=== PATIENT | male | born 1935 | race Two or more races ===

== ENCOUNTER → 2022-08-01 | Outpatient (CLI) | payer OTHER ==
[2022-08-01 08:01] LABS: Basophils # (auto) 0 10 ^3/uL (0-0.2); Basophils % (auto) 0.4 % (0.0-2.0); Eosinophils # (auto) 0.1 10 ^3/uL (0-0.8); Eosinophils % (auto) 1.8 % (0.0-7.0); Hemoglobin 14.6 g/dL (13.5-17.5); Lymphocytes # (auto) 2.7 10 ^3/uL (0.4-5.4); Lymphocytes % (auto) 36.1 % (10.0-50.0); Mean Corpuscular Hemoglobin 33.6 pg (28.0-32.0); Mean Corpuscular Hgb Conc. 33.9 g/dL (32.0-36.0); Mean Corpuscular Volume 99.3 fL (80.0-100.0); Monocytes # (auto) 0.4 10 ^3/uL (0-1.3); Monocytes % (auto) 6.1 % (0.0-12.0); Neutrophils # (auto) 4.1 10 ^3/uL (1.6-8.6); Neutrophils % (auto) 55.6 % (37.0-80.0); Nucleated Red Blood Cells % 0.2 %; Red Blood Cells 4.33 10^6/uL (4.5-5.90); Red Cell Distribution Width 14.5 % (11.8-14.3); White Blood Cell 7.4 10^3/uL (4.4-10.8)
[2022-08-01 08:35] LABS: Albumin 3.8 g/dL (3.4-5.0); Calcium 10.3 mg/dL (8.5-10.1); Potassium 3.9 mmol/L (3.5-5.1)
[2022-08-01 08:43] LABS: BUN/Creatinine Ratio 13.6 (10.0-20.0); Bilirubin, Total 0.6 mg/dL (0.2-1.0); Total Protein 7.3 g/dL (6.4-8.2)
[2022-08-01 08:46] LABS: Prostate Specific Antigen 0.09 ng/mL (0.0-4.0)
== END | disposition home or self-care (01) ==
LOC: LAB 07:22
PROVIDERS: ATTEND Internal Medicine
DX: Z12.5 Encounter for screening for malignant neoplasm of prostate (principal); E11.21 Type 2 diabetes mellitus with diabetic nephropathy; E78.5 Hyperlipidemia, unspecified; E53.0 Riboflavin deficiency; E55.9 Vitamin D deficiency, unspecified
CPT/HCPCS: 36415; 80053; 82306; 82465; 82607; 83036; 83718; 83721; 84153; 84439; 84478; 85025

== ENCOUNTER → 2022-11-09 | Outpatient (CLI) | payer OTHER ==
[2022-11-09 08:27] LABS: Urine Bacteria NONE SEEN /hpf (None Seen); Urine Blood Negative /uL (Negative); Urine Clarity Clear (Clear); Urine Color Yellow (Yellow); Urine Protein, UAD Negative (Negative); Urine Specific Gravity 1.013 (1.001-1.035); Urine Urobilinogen Normal (Negative); Urine WBC <1 /hpf (0 - 3); Urine pH 5.5 (5.0-8.0)
[2022-11-09 09:04] LABS: CRP High Sensitivity 0.27 mg/dL (< 0.3)
== END | disposition home or self-care (01) ==
LOC: LAB 07:47
PROVIDERS: ATTEND Internal Medicine
DX: E11.21 Type 2 diabetes mellitus with diabetic nephropathy (principal); E78.5 Hyperlipidemia, unspecified; R80.9 Proteinuria, unspecified; E55.9 Vitamin D deficiency, unspecified; E53.8 Deficiency of other specified B group vitamins
CPT/HCPCS: 36415; 80061; 81001; 82043; 82306; 82550; 82607; 83036; 84436; 84443; 86141; 87086

== ENCOUNTER → 2023-05-02 | Outpatient (CLI) | payer OTHER ==
[2023-05-02 10:25] LABS: Anion Gap 6 (5-15); Carbon Dioxide 26 mmol/L (20-30); Chloride 108 mmol/L (98-107); Potassium 4.3 mmol/L (3.5-5.1); Sodium 140 mmol/L (136-145)
[2023-05-02 10:26] LABS: Calcium 10.3 mg/dL (8.5-10.1)
[2023-05-02 10:30] LABS: Glucose 180 mg/dL (74-106)
[2023-05-02 10:31] LABS: BUN/Creatinine Ratio 9.4 (10.0-20.0); Blood Urea Nitrogen 13 mg/dL (9-23); Cholesterol 176 mg/dL (< 200); Triglycerides 71 mg/dL (< 150)
[2023-05-02 10:32] LABS: Creatinine, Urine 104.28 mg/dL (30.0-125.0); LDL Cholesterol 107 mg/dL (< 100)
[2023-05-02 10:33] LABS: HDL Cholesterol 57 mg/dL (40-59)
[2023-05-02 10:34] LABS: Micro Albumin < 3.0 mg/L (<30.0)
== END | disposition home or self-care (01) ==
LOC: LAB 09:35
PROVIDERS: ATTEND Internal Medicine
DX: E11.69 Type 2 diabetes mellitus with other specified complication (principal); E78.5 Hyperlipidemia, unspecified
CPT/HCPCS: 36415; 80048; 80061; 82043; 82570; 83036

== ENCOUNTER → 2023-11-06 | Outpatient (CLI) | payer OTHER ==
[2023-11-06 08:02] LABS: Basophils # (auto) 0 10 ^3/uL (0-0.2); Basophils % (auto) 0.3 % (0.0-2.0); Eosinophils # (auto) 0.1 10 ^3/uL (0-0.8); Eosinophils % (auto) 1.9 % (0.0-7.0); Hematocrit 40.8 % (41.0-53.0); Hemoglobin 13.7 g/dL (13.5-17.5); Lymphocytes # (auto) 2.2 10 ^3/uL (0.4-5.4); Mean Corpuscular Hemoglobin 30.4 pg (28.0-32.0); Mean Corpuscular Hgb Conc. 33.7 g/dL (32.0-36.0); Mean Corpuscular Volume 90.1 fL (80.0-100.0); Monocytes # (auto) 0.5 10 ^3/uL (0-1.3); Monocytes % (auto) 8.1 % (0.0-12.0); Neutrophils # (auto) 3.6 10 ^3/uL (1.6-8.6); Neutrophils % (auto) 55.7 % (37.0-80.0); Nucleated Red Blood Cells % 0.1 %; Red Blood Cells 4.52 10^6/uL (4.5-5.90); Red Cell Distribution Width 16.1 % (11.8-14.3); White Blood Cell 6.4 10^3/uL (4.4-10.8)
[2023-11-06 08:31] LABS: Alanine Aminotransferase 10 U/L (7-40); Albumin 4.3 g/dL (3.2-4.8); Alkaline Phosphatase 88 U/L (46-116); Anion Gap 8 (5-15); Aspartate Aminotransferase 9 U/L (13-40); BUN/Creatinine Ratio 11.2 (10.0-20.0); Bilirubin, Total 0.7 mg/dL (0.2-1.0); Blood Urea Nitrogen 13 mg/dL (9-23); Calcium 10.7 mg/dL (8.7-10.4); Carbon Dioxide 24 mmol/L (20-30); Chloride 106 mmol/L (98-107); Cholesterol 126 mg/dL (< 200); Creatine Kinase IFCC 25 U/L (46-171); Glucose 102 mg/dL (74-106); HDL Cholesterol 57 mg/dL (40-59); LDL Cholesterol 50 mg/dL (< 100); Potassium 4.1 mmol/L (3.5-5.1); Sodium 138 mmol/L (136-145); Total Protein 6.7 g/dL (5.7-8.2); Triglycerides 98 mg/dL (< 150)
== END | disposition home or self-care (01) ==
LOC: LAB 07:23
PROVIDERS: ATTEND Internal Medicine
DX: E11.22 Type 2 diabetes mellitus with diabetic chronic kidney disease (principal); N18.32 Chronic kidney disease, stage 3b; E11.21 Type 2 diabetes mellitus with diabetic nephropathy; E55.9 Vitamin D deficiency, unspecified; R80.9 Proteinuria, unspecified; E78.5 Hyperlipidemia, unspecified; R10.13 Epigastric pain
CPT/HCPCS: 36415; 80053; 80061; 82043; 82306; 82550; 83036; 84436; 84443; 85025; 87086

== ENCOUNTER → 2023-11-23 | Outpatient (CLI) | payer OTHER ==
[2023-11-23 11:03] LABS: Urine Bacteria None Seen /hpf (None Seen)
[2023-11-23 11:05] LABS: Basophils # (auto) 0 10 ^3/uL (0-0.2); Basophils % (auto) 0.3 % (0.0-2.0); Eosinophils # (auto) 0.1 10 ^3/uL (0-0.8); Eosinophils % (auto) 1.7 % (0.0-7.0); Hematocrit 42.1 % (41.0-53.0); Lymphocytes # (auto) 1.8 10 ^3/uL (0.4-5.4); Lymphocytes % (auto) 31.9 % (10.0-50.0); Mean Corpuscular Hemoglobin 29.8 pg (28.0-32.0); Mean Corpuscular Hgb Conc. 33.3 g/dL (32.0-36.0); Mean Corpuscular Volume 89.7 fL (80.0-100.0); Monocytes # (auto) 0.5 10 ^3/uL (0-1.3); Monocytes % (auto) 8.8 % (0.0-12.0); Neutrophils # (auto) 3.2 10 ^3/uL (1.6-8.6); Neutrophils % (auto) 57.3 % (37.0-80.0); Nucleated Red Blood Cells % 0.1 %; Platelet Count (auto) 270 10^3/uL (140-450); Red Blood Cells 4.69 10^6/uL (4.5-5.90); Red Cell Distribution Width 17.1 % (11.8-14.3); White Blood Cell 5.6 10^3/uL (4.4-10.8)
[2023-11-23 11:28] LABS: Urine Blood Negative /uL (Negative); Urine Clarity Clear (Clear); Urine Color Yellow (Yellow); Urine Protein, UAD Negative (Negative); Urine Specific Gravity 1.021 (1.001-1.035); Urine Urobilinogen Normal (Negative); Urine WBC <1 /hpf (0 - 3); Urine pH 5.5 (5.0-9.0)
[2023-11-23 11:59] LABS: % Iron Saturation 16.1 % (20-55)
[2023-11-23 12:01] LABS: Alanine Aminotransferase 11 U/L (7-40); Albumin 4.4 g/dL (3.2-4.8); Alkaline Phosphatase 112 U/L (46-116); Anion Gap 7 (5-15); Aspartate Aminotransferase 15 U/L (13-40); BUN/Creatinine Ratio 7.8 (10.0-20.0); Bilirubin, Total 0.8 mg/dL (0.2-1.0); Blood Urea Nitrogen 10 mg/dL (9-23); Calcium 10.3 mg/dL (8.7-10.4); Carbon Dioxide 25 mmol/L (20-30); Chloride 106 mmol/L (98-107); Glucose 113 mg/dL (74-106); Potassium 4.1 mmol/L (3.5-5.1); Sodium 138 mmol/L (136-145)
[2023-11-23 12:02] LABS: Total Protein 7.2 g/dL (5.7-8.2)
[2023-11-23 12:03] LABS: Carcinoembryonic Antigen 0.94 ng/mL (<=5.0)
[2023-11-23 12:18] LABS: Folate (Folic Acid) 37.04 ng/mL (>5.38)
[2023-11-24 08:07] LABS: AFP Serum Tumor Marker <1.8 ng/mL (0.0-6.4); PSA Free 0.03 ng/mL; Prostate Specific Antigen 0.1 ng/mL (0.0-4.0)
== END | disposition home or self-care (01) ==
LOC: LAB 10:49
PROVIDERS: ATTEND Internal Medicine
DX: R63.4 Abnormal weight loss (principal); Z12.5 Encounter for screening for malignant neoplasm of prostate; E11.21 Type 2 diabetes mellitus with diabetic nephropathy
CPT/HCPCS: 36415; 80053; 81001; 82105; 82378; 82607; 82746; 83540; 83550; 83615; 84154; 85025; 87086

== ENCOUNTER → 2024-06-06 | Outpatient (CLI) | payer OTHER ==
[2024-06-06 10:57] LABS: Creatinine, Urine 190.58 mg/dL (30.0-125.0)
[2024-06-06 11:00] LABS: Microalb/Creat Ratio, Urine < 3.0
[2024-06-06 11:01] LABS: Alanine Aminotransferase 11 U/L (7-40); Albumin 4.6 g/dL (3.2-4.8); Alkaline Phosphatase 91 U/L (46-116); Anion Gap 9 (5-15); Aspartate Aminotransferase 13 U/L (13-40); BUN/Creatinine Ratio 10.4 (10.0-20.0); Bilirubin, Total 0.6 mg/dL (0.2-1.0); Blood Urea Nitrogen 13 mg/dL (9-23); Calcium 10.8 mg/dL (8.7-10.4); Carbon Dioxide 26 mmol/L (20-31); Chloride 108 mmol/L (98-107); Cholesterol 174 mg/dL (< 200); Glucose 123 mg/dL (74-106); HDL Cholesterol 63 mg/dL (40-59); LDL Cholesterol 95 mg/dL (< 100); Potassium 4.3 mmol/L (3.5-5.1); Sodium 143 mmol/L (136-145); Total Protein 7.1 g/dL (5.7-8.2); Triglycerides 92 mg/dL (< 150)
== END | disposition home or self-care (01) ==
LOC: LAB 10:09
PROVIDERS: ATTEND Internal Medicine
DX: E11.69 Type 2 diabetes mellitus with other specified complication (principal); E78.5 Hyperlipidemia, unspecified
CPT/HCPCS: 36415; 80053; 80061; 82043; 82570; 83036

== ENCOUNTER → 2024-10-03 | Outpatient (CLI) | payer OTHER ==
[2024-10-03 07:58] LABS: Alanine Aminotransferase 10 U/L (7-40); Albumin 4.3 g/dL (3.2-4.8); Alkaline Phosphatase 97 U/L (46-116); Anion Gap 9 (5-15); BUN/Creatinine Ratio 8.6 (10.0-20.0); Blood Urea Nitrogen 11 mg/dL (9-23); Calcium 10.3 mg/dL (8.7-10.4); Carbon Dioxide 26 mmol/L (20-31); Chloride 106 mmol/L (98-107); Potassium 4.2 mmol/L (3.5-5.1); Sodium 141 mmol/L (136-145); Total Protein 6.8 g/dL (5.7-8.2)
[2024-10-03 07:59] LABS: Bilirubin, Total 0.8 mg/dL (0.2-1.0)
[2024-10-03 08:05] LABS: Glucose 121 mg/dL (74-106)
== END | disposition home or self-care (01) ==
LOC: LAB 06:44
PROVIDERS: ATTEND Internal Medicine
DX: E11.69 Type 2 diabetes mellitus with other specified complication (principal)
CPT/HCPCS: 36415; 80053; 83036

== ENCOUNTER 2025-02-17 14:29 | Inpatient (IN) | payer OTHER ==
[~2025-02-17] VITALS: Ht 167.6 cm; Wt 72.4 kg
--- NOTE | 2025-02-17 15:58 | ED.PDOC ---
History of Present Illness HPI Comments 89 year old male with PMHx DM presents to the ED via EMS with a chief compliant of generalized weakness onset 1 day. states patient has been experiencing generalized weakness for the past day, yesterday around 15:00 went to the restroom, was not able to get up due to weakness, fell on the ground. Today, patient was was sitting down, tried to stand up, fell backwards, landing on his back. Patient states he is currently experiencing RT thigh pain. states patient has been experiencing hematuria, RT testicle swelling for the past day, was experiencing RT back pain. Denies headache, chest pain, dizziness, nausea, vomiting, diarrhea, LOC. No other symptoms or modifying factors present at this time. Chief Complaint: General Weakness Time Seen by MD: 15:45 Reviewed Notes: Medications, Allergies Allergies: Coded Allergies: NO KNOWN ALLERGIES (Unverified , 02/17/25) Information Source: Patient, Emergency Med Personnel, Spouse Mode of Arrival: EMS Severity: Moderate Timing: Days Duration: Since onset Prehospital treatment: None Past Medical History PAST MEDICAL HISTORY: DM Surgical History: Denies all surgeries Family History Family History: Reviewed,noncontributory to illness, No family hx of Cancer, No family hx of DM, No family hx of Heart ghulam, No family hx of HTN, No family hx ofKidney ghulam, No family hx of Liver ghulam, No family hx of Lung ghulam, No family hx of Stroke Social History Smoker: Non-Smoker Alcohol: Denies ETOH Use Drugs: Denies Drug Use Lives In: Home Constitutional: denies: chills, diaphoresis, fatigue, fever, malaise, sweats, weakness, others EENTM: denies: blurred vision, double vision, ear bleeding, ear discharge, ear drainage, ear pain, ear ringing, eye pain, eye redness, hearing loss, mouth pain, mouth swelling, nasal discharge, nose bleeding, nose congestion, nose pain, photophobia, tearing, throat pain, throat swelling, voice changes, others Respiratory: denies: cough, hemoptysis, orthopnea, SOB at rest, shortness of breath, SOB with excertion, stridor, wheezing, others Cardiovascular: denies: chest pain, dizzy spells, diaphoresis, Dyspnea on exertion, edema, irregular heart beat, left arm pain, lightheadedness, palpitations, PND, syncope, others Gastrointestinal: denies: abdomen distended, abdominal pain, blood streaked bowels, constipated, diarrhea, dysphagia, difficulty swallowing, hematemesis, melena, nausea, poor appetite, poor fluid intake, rectal bleeding, rectal pain, vomiting, others Genitourinary: reports: hematuria, testicle swelling; denies: burning, dysuria, flank pain, frequency, incontinence, penile discharge, penile sore, pain, testicle pain, urgency, others Neurological: denies: dizziness, fainting, headache, left sided numbness, left sided weakness, numbness, paresthesia, pre-existing deficit, right sided numbness, right sided weakness, seizure, speech problems, tingling, tremors, weakness, others Musculoskeletal: reports: back pain, others (RT thigh pain); denies: gout, joint pain, joint swelling, muscle pain, muscle stiffness, neck pain Integumetry: denies: bruises, change in color, change in hair/nails, dryness, laceration, lesions, lumps, rash, wounds, others Allergic/Immunocompromised: denies: Difficulty Healing, Frequent Infections, Hives, Itching, others Hematologic/Lymphatic: denies: anemia, blood clots, easy bleeding, easy bruising, swollen glands, others Endocrine: denies: excessive hunger, excessive sweating, excessive thirst, excessive urination, flushing, intolerance to cold, intolerance to heat, unexplained weight gain, unexplained weight loss, others Psychiatric: denies: anxiety, bipolar disorder, depression, hopeless, panic disorder, schizophrenia, sleepless, suicidal, others All Other Systems: Reviewed and Negative Physical Exam General Appearance: Normal HEENT: Normal ENT Inspection, Pharynx Normal, TMs Normal Neck: Full Range of Motion, Non-Tender, Normal, Normal Inspection Respiratory: Chest Non-Tender, Lungs Clear, No Accessory Muscle Use, No Respiratory Distress, Normal Breath Sounds Cardiovascular: No Edema, No JVD, No Murmur, No Gallop, Normal Peripheral Pulses, Regular Rate/Rhythm Breast Exam: Deferred Gastrointestinal: No Organomegaly, Non Tender, No Pulsatile Mass, Normal Bowel Sounds, Soft Genitalia: Deferred Pelvic: Deferred Rectal: Deferred Extremities: No calf tenderness, Normal capillary refill, No pedal edema Musculoskeletal : Location: Right Extremity Location: Thigh (tenderness to palpation) Apperance: Normal Neurologic: Alert, vulnerability assessment analyst II-XII nml as Tested, No Motor Deficits, Normal Affect, Normal Mood, No Sensory Deficits Cerebellar Function: Normal Reflexes: Normal Skin: Dry, Normal Color, Warm Lymphatic: No Adenopathy Was a procedure done? Was a procedure done?: No Differential Dx Considerations may include: Urosepsis, urinary tract infection, generalized weakness, metabolic encephalopathy, failure to thrive, X-Ray, Labs, Meds, VS Vital Signs Date Time Temp Pulse Resp B/P (MAP) Pulse Ox O2 Delivery O2 Flow Rate FiO2 02/17/25 18:00 89 14 92 Room Air* 0 21 02/17/25 18:00 98.2 89 14 165/69 (101) 92 98.2 02/17/25 14:58 98 02/17/25 14:30 99.7 97 16 166/80 95 99.7 Lab Test 02/17/25 16:15 Range/Units White Blood Count 11.7 H 4.4-10.8 10^3/uL Red Blood Count 4.40 L 4.5-5.90 10^6/uL Hemoglobin 14.5 13.5-17.5 g/dL Hematocrit 42.0 41.0-53.0 % Mean Corpuscular Volume 95.6 80.0-100.0 fL Mean Corpuscular Hemoglobin 33.0 H 28.0-32.0 pg Mean Corpuscular Hemoglobin Concent 34.6 32.0-36.0 g/dL Red Cell Distribution Width 14.3 11.8-14.3 % Platelet Count 229 140-450 10^3/uL Mean Platelet Volume 6.3 L 6.9-10.8 fL Neutrophils (%) (Auto) 82.7 H 37.0-80.0 % Lymphocytes (%) (Auto) 9.9 L 10.0-50.0 % Monocytes (%) (Auto) 7.2 0.0-12.0 % Eosinophils (%) (Auto) 0.0 0.0-7.0 % Basophils (%) (Auto) 0.2 0.0-2.0 % Neutrophils # (Auto) 9.7 H 1.6-8.6 10 ^3/uL Lymphocytes # (Auto) 1.2 0.4-5.4 10 ^3/uL Monocytes # (Auto) 0.8 0-1.3 10 ^3/uL Eosinophils # (Auto) 0 0-0.8 10 ^3/uL Basophils # (Auto) 0 0-0.2 10 ^3/uL Nucleated Red Blood Cells 0.0 % Sodium Level 140 136-145 mmol/L Potassium Level 3.9 3.5-5.1 mmol/L Chloride Level 102 98-107 mmol/L Carbon Dioxide Level 25 20-31 mmol/L Anion Gap 13 5-15 Blood Urea Nitrogen 12 9-23 mg/dL Creatinine 1.35 H 0.700-1.30 mg/dL Glomerular Filtration Rate Calc 51 >90 mL/min BUN/Creatinine Ratio 8.9 L 10.0-20.0 Serum Glucose 155 H 74-106 mg/dL Calcium Level 10.4 8.7-10.4 mg/dL Total Bilirubin 1.1 H 0.2-1.0 mg/dL Aspartate Amino Transferase (AST) 73 H 13-40 U/L Alanine Aminotransferase (ALT) 40 7-40 U/L Alkaline Phosphatase 128 H 46-116 U/L Total Protein 7.5 5.7-8.2 g/dL Albumin 4.4 3.2-4.8 g/dL X-Ray, Labs, Meds, VS Comment Patient will be admitted due to generalized weakness and multiple falls over the last 24 hours. Patient hemodynamically stable Vital signs reviewed Patient unable to provide a urine sample was at this point. Patient will be straight cath, to rule out urinary tract infection There was concerns that patient's ability to care for self are those at home to care for him, he may need high school social studies tutor. Time of 1ST Reevaluation: 16:15 Reevaluation 1ST: Unchanged Patient Education/Counseling: Diagnosis, Treatment, Prognosis Family Education/Counseling: Diagnosis, Treatment, Prognosis SEPSIS Sepsis Screen Date sepsis recognized/suspect: Feb 17, 2025 Time Sepsis recognized/suspect: 1430 Recent Procedure: No On Antibiotic Therapy: No Respiratory Rate >20: Yes Heart Rate >90: Yes Temp<36 C (96.8 F) or >38.3 C: No SBP <90 or MAP <65 mmHG: No New Acute Mental Status Change: No Is the patient on CPAP, BIPAP,: No Physician Orders Urinalysis (02/17/25 15:46) Vital Signs Date Time Temp Pulse Resp B/P (MAP) Pulse Ox O2 Delivery O2 Flow Rate FiO2 02/17/25 18:00 89 14 92 Room Air* 0 21 02/17/25 18:00 98.2 89 14 165/69 (101) 92 98.2 02/17/25 14:58 98 02/17/25 14:30 99.7 97 16 166/80 95 99.7 Laboratory Tests Test 02/17/25 16:15 White Blood Count 11.7 10^3/uL (4.4-10.8) H Departure 1 Departure Time of Disposition: 20:54 Impression: Primary Impression: Generalized weakness Additional Impressions: Elevated white blood cell count Qualified Codes: D72.829 - Elevated white blood cell count, unspecified Fall Qualified Codes: W19.XXXA - Unspecified fall, initial encounter Disposition: ADMITTED INPATIENT Condition: Stable Discharged With: Self Critical Care Note Critical Care Time?: No Stability Stability form required: No Heart Score Heart Score: Heart Score Response (Comments) Value History N/A 0 EKG N/A 0 Age N/A 0 Risk Factors N/A 0 Troponin N/A 0 Total 0 I personally scribed for BRAD CHESTER ([email or web address]) on 02/17/25 at 15:58. Electronically submitted by Lillian Parker ([email or web address]). BRAD CHESTER Feb 17, 2025 15:58
[2025-02-17 16:33] LABS: Hematocrit 42.0 % (41.0-53.0); Hemoglobin 14.5 g/dL (13.5-17.5); Mean Corpuscular Hemoglobin 33.0 pg (28.0-32.0); Mean Corpuscular Volume 95.6 fL (80.0-100.0); Nucleated Red Blood Cells % 0.0 %
[2025-02-17 16:51] LABS: Alanine Aminotransferase 40 U/L (7-40); Albumin 4.4 g/dL (3.2-4.8); Anion Gap 13 (5-15); BUN/Creatinine Ratio 8.9 (10.0-20.0); Blood Urea Nitrogen 12 mg/dL (9-23); Calcium 10.4 mg/dL (8.7-10.4); Carbon Dioxide 25 mmol/L (20-31); Chloride 102 mmol/L (98-107); Potassium 3.9 mmol/L (3.5-5.1); Sodium 140 mmol/L (136-145); Total Protein 7.5 g/dL (5.7-8.2)
[2025-02-17 16:52] LABS: Bilirubin, Total 1.1 mg/dL (0.2-1.0)
[2025-02-17 16:57] LABS: Alkaline Phosphatase 128 U/L (46-116); Glucose 155 mg/dL (74-106)
--- NOTE | 2025-02-17 17:13 | ECG ---
[facility] Test Date: 2025-02-17 Test Time: 14:28:35 Pat Name: JASVIR DUMONT Department: ED Room: 0220 Gender: M [employer] Developer: gp : [id number] Requested By: KRIS HORAN Order Number: [id number] Reading MD: Xu Noble Measurements Intervals Pawling Rate: 98 P: 50 VA: 167 QRS: -69 QRSD: 141 T: 42 QT: 360 QTc: 460 Interpretive Statements Sinus rhythm RBBB and LAFB Baseline wander in lead(s) V3 Electronically Signed On 02-18-2025 17:58:35 PST by Xu Noble Please click the below link to view image of tracing.
--- NOTE | 2025-02-17 17:18 | DVH ---
RIGHTLEFT HIP RADIOGRAPH. CLINICAL INDICATION: fall TECHNIQUE: 3 views of the right hip were obtained. COMPARISON: None FINDINGS: There is no evidence of fracture, subluxation or dislocation.The alignment is within normal limits.The bony mineralization is normal.No radiopaque foreign body is identified. IMPRESSION: 1. No evidence of acute bony injury. TING MACHINE OPERATOR ANNABELLED
[2025-02-17 18:00] VITALS: PULSE 89; RESP 14; O2SAT 92
[2025-02-17] MEDS ORDERED: ONDANSETRON HCL 4 MG/2 ML VIAL IV PRN (22:30)
[2025-02-17] MEDS ORDERED: ACETAMINOPHEN 325 MG TAB PO PRN (22:30)
[2025-02-17] MEDS ORDERED: DEXTROSE (50%) 50ML SYRG IV PRN (22:30)
[2025-02-17] MEDS: DONEPEZIL HYDROCHLORIDE 5 MG TAB PO ONE (22:58)
--- NOTE | 2025-02-18 04:08 | DVHHP2 ---
History of Present Illness Reason for Visit: Generalized weakness History of Present Illness 89-year-old male presents for evaluation of generalized weakness. Patient presents with worsening fatigue and weakness. Yesterday patient's called after patient was unable to get up from the bathroom floor. There was no head trauma or loss of consciousness. Patient is currently lethargic oriented x2. Past Medical History Diabetes mellitus, hypertension, dementia Past Surgical History None Family History Noncontributory Smoke: No ALCOHOL: none Drugs: None Lives: with Family Review of Systems Review of Systems Review of systems are currently negative otherwise addressed in HPI. Allergies: Coded Allergies: NO KNOWN ALLERGIES (Unverified , 02/17/25) Medications Current Medications Medications Dose Ordered Sig/Liliane Route Start Time Stop Time Status Last Admin Dose Admin Donepezil HCl 10 mg HS PO 02/18/25 22:00 Lisinopril 5 mg DAILY PO 02/18/25 10:00 Atorvastatin Calcium 20 mg HS PO 02/18/25 22:00 Gabapentin 100 mg TID PO 02/18/25 06:00 Clonidine HCl 0.1 mg Q6HP PRN PO 02/17/25 22:30 Diagnostic Test (Pha) 1 strip ACHS 02/18/25 07:00 Insulin Human Regular ACHS SC 02/18/25 07:00 Dextrose 50 ml UD PRN IV 02/17/25 22:30 Ondansetron HCl 4 mg Q4HP PRN IV 02/17/25 22:30 Enoxaparin Sodium 30 mg DAILY SC 02/18/25 10:00 Acetaminophen 650 mg Q6HP PRN PO 02/17/25 22:30 Exam Vital Signs Vital Signs Date Time Temp Pulse Resp B/P (MAP) Pulse Ox O2 Delivery O2 Flow Rate FiO2 02/18/25 02:00 98.3 86 16 147/65 (92) 97 98.3 02/17/25 18:00 Room Air* 0 21 Exam Gen: 81-year-old male in mild distress Skin: Warm, dry, normal color and texture, no rash. HEENT: Normocephalic atraumatic, mucous membranes moist and pink. Neck: Cervical and supraclavicular nodes normal without enlargement, trachea is midline, thyroid gland is normal without masses. Pulmonary: Clear to auscultation and percussion bilaterally. Cardiac: Regular rate and rhythm. No murmur Abdomen: Soft, nontender, nondistended, bowel sounds present all 4 quadrants, no guarding, no rigidity, no organomegaly. Extremities: No cyanosis, clubbing, no edema Neuro: Cranial nerves II through XII grossly intact, normal affect and speech, no focal motor deficits. Labs/Xrays Right hip x-ray showing no acute pathology Labs Test 02/17/25 16:15 Range/Units White Blood Count 11.7 H 4.4-10.8 10^3/uL Red Blood Count 4.40 L 4.5-5.90 10^6/uL Hemoglobin 14.5 13.5-17.5 g/dL Hematocrit 42.0 41.0-53.0 % Mean Corpuscular Volume 95.6 80.0-100.0 fL Mean Corpuscular Hemoglobin 33.0 H 28.0-32.0 pg Mean Corpuscular Hemoglobin Concent 34.6 32.0-36.0 g/dL Red Cell Distribution Width 14.3 11.8-14.3 % Platelet Count 229 140-450 10^3/uL Mean Platelet Volume 6.3 L 6.9-10.8 fL Neutrophils (%) (Auto) 82.7 H 37.0-80.0 % Lymphocytes (%) (Auto) 9.9 L 10.0-50.0 % Monocytes (%) (Auto) 7.2 0.0-12.0 % Eosinophils (%) (Auto) 0.0 0.0-7.0 % Basophils (%) (Auto) 0.2 0.0-2.0 % Neutrophils # (Auto) 9.7 H 1.6-8.6 10 ^3/uL Lymphocytes # (Auto) 1.2 0.4-5.4 10 ^3/uL Monocytes # (Auto) 0.8 0-1.3 10 ^3/uL Eosinophils # (Auto) 0 0-0.8 10 ^3/uL Basophils # (Auto) 0 0-0.2 10 ^3/uL Nucleated Red Blood Cells 0.0 % Sodium Level 140 136-145 mmol/L Potassium Level 3.9 3.5-5.1 mmol/L Chloride Level 102 98-107 mmol/L Carbon Dioxide Level 25 20-31 mmol/L Anion Gap 13 5-15 Blood Urea Nitrogen 12 9-23 mg/dL Creatinine 1.35 H 0.700-1.30 mg/dL Glomerular Filtration Rate Calc 51 >90 mL/min BUN/Creatinine Ratio 8.9 L 10.0-20.0 Serum Glucose 155 H 74-106 mg/dL Calcium Level 10.4 8.7-10.4 mg/dL Total Bilirubin 1.1 H 0.2-1.0 mg/dL Aspartate Amino Transferase (AST) 73 H 13-40 U/L Alanine Aminotransferase (ALT) 40 7-40 U/L Alkaline Phosphatase 128 H 46-116 U/L Total Protein 7.5 5.7-8.2 g/dL Albumin 4.4 3.2-4.8 g/dL SEPSIS Sepsis Screen Date sepsis recognized/suspect: Feb 17, 2025 Time Sepsis recognized/suspect: 1800 Recent Procedure: No On Antibiotic Therapy: No Respiratory Rate >20: No Heart Rate >90: No Temp<36 C (96.8 F) or >38.3 C: No SBP <90 or MAP <65 mmHG: No New Acute Mental Status Change: No Is the patient on CPAP, BIPAP,: No Physician Orders Communication Order (02/17/25 22:21) Donepezil Tablet (Aricept Tablet) (02/18/25 22:00) Lisinopril Tablet (Zestril Tablet) (02/18/25 10:00) Atorvastatin (Lipitor) (02/18/25 22:00) Gabapentin Capsule (Neurontin Capsule) (02/18/25 06:00) Clonidine Hcl Tablet (Catapres Tablet) (02/17/25 22:30) Basic Metabolic Panel (02/18/25 04:00) Glucose Blood (Accu-Chek Comfort Curve T (02/18/25 07:00) Insulin R (Human) (Insulin R) (02/18/25 07:00) Dextrose 50% Syringe (02/17/25 22:30) Ondansetron Hcl (Zofran) (02/17/25 22:30) Cardiac Diet-2gna,Lofat,Lochol (02/18/25 Breakfast) Condition: Stable (02/17/25 22:21) Enoxaparin Sodium (Lovenox) (02/18/25 10:00) Acetaminophen Tablet (Tylenol Tablet) (02/17/25 22:30) Bedrest With Bathroom Privileg (02/17/25 22:21) Admit (02/18/25 00:15) Vital Signs Date Time Temp Pulse Resp B/P (MAP) Pulse Ox O2 Delivery O2 Flow Rate FiO2 02/18/25 02:00 98.3 86 16 147/65 (92) 97 98.3 02/18/25 01:00 98.3 96 17 134/74 (94) 91 98.3 02/17/25 22:00 98.2 91 14 150/68 (95) 92 98.2 Laboratory Tests Test 02/17/25 16:15 White Blood Count 11.7 10^3/uL (4.4-10.8) H Medications Medications Dose Ordered Sig/Liliane Route Start Time Stop Time Status Last Admin Dose Admin Donepezil HCl 10 mg ONCE ONCE PO 02/17/25 22:30 02/17/25 22:41 DC 02/17/25 22:58 10 MG Assessment/Plan Assessment/Plan Assessment Failure to thrive Generalized weakness Diabetes mellitus Hypertension Dementia Plan Admit the patient to [facility] to the hospitalist Resume home medications Social service consult Continue treatment per orders. Plan discussed with: Patient My Orders Orders - KRYSTAL PAVON Procedure Category Date Status Time Communication Order ORDERS 02/17/25 Transmitted 22:21 Donepezil Tablet PHA 02/18/25 In Process (Aricept Tablet) 22:00 Lisinopril Tablet PHA 02/18/25 In Process (Zestril Tablet) 10:00 Atorvastatin (Lipitor) PHA 02/18/25 In Process 22:00 Gabapentin Capsule PHA 02/18/25 In Process (Neurontin Capsule) 06:00 Clonidine Hcl Tablet PHA 02/17/25 In Process (Catapres Tablet) 22:30 Basic Metabolic Panel LAB 02/18/25 Logged 04:00 Glucose Blood PHA 02/18/25 In Process (Accu-Chek Comfort 07:00 Insulin R (Human) PHA 02/18/25 In Process (Insulin R) 07:00 Dextrose 50% Syringe PHA 02/17/25 In Process 22:30 Ondansetron Hcl PHA 02/17/25 In Process (Zofran) 22:30 Cardiac DIET 02/18/25 Transmitted Diet-2gna,Lofat,Lochol Breakfast Condition: Stable DEBO 02/17/25 In Process 22:21 Enoxaparin Sodium PHA 02/18/25 In Process (Lovenox) 10:00 Acetaminophen Tablet PHA 02/17/25 In Process (Tylenol Tablet) 22:30 Bedrest With Bathroom DEBO 02/17/25 In Process Privileg 22:21 Admit ADMIT 02/18/25 Transmitted 00:15 Date of Service: Feb 17, 2025 Billing Provider: KRYSTAL PAVON Common Visit Codes: [id number] INP/OBS CARE (MOD) KRYSTAL PAVON Feb 18, 2025 04:08
[2025-02-18 05:45] LABS: Chloride 100 mmol/L (98-107); Potassium 3.7 mmol/L (3.5-5.1); Sodium 136 mmol/L (136-145)
[2025-02-18 05:46] LABS: Anion Gap 11 (5-15); Calcium 9.4 mg/dL (8.7-10.4); Carbon Dioxide 25 mmol/L (20-31)
[2025-02-18] MEDS: GABAPENTIN 100 MG CAP PO SCH (05:50)
[2025-02-18 05:51] LABS: BUN/Creatinine Ratio 9.5 (10.0-20.0); Blood Urea Nitrogen 12 mg/dL (9-23)
[2025-02-18 06:14] LABS: Glucose 137 mg/dL (74-106)
[2025-02-18] MEDS: ACCU-CHEK COMFORT CURVE STRIP VI SCH (06:52)
[2025-02-18] MEDS: InsuLIN REG 1unit/0.01ml Soln (100units/ml) SC SCH (06:56)
[2025-02-18 08:26] LABS: Urine Protein, UAD 1+ (Negative); Urine WBC Clumps PRESENT /hpf (None Seen)
--- NOTE | 2025-02-18 08:56 | DVH ---
EXAM: XY CHEST XRAY 1 VIEW Indication: SOB Technique: Single frontal view of the chest was obtained Comparison: XY CHEST TWO VIEWS ROUTINE on DOS: 11/23/23 FINDINGS: Lines and Tubes: None Lungs: No focal consolidation. Pleura: No effusion. No pneumothorax. Cardiomediastinal contours: Unremarkable Bones: No acute osseous abnormality. IMPRESSION: No acute cardiopulmonary disease.
[2025-02-18 09:12] LABS: Hematocrit 41.1 % (41.0-53.0); Hemoglobin 14.1 g/dL (13.5-17.5); Mean Corpuscular Hemoglobin 32.5 pg (28.0-32.0); Mean Corpuscular Volume 95.0 fL (80.0-100.0); Nucleated Red Blood Cells % 0.0 %
[2025-02-18] MEDS: LISINOPRIL 5 MG TAB PO SCH (10:31)
[2025-02-18] MEDS: ENOXAPARIN SOD 30 MG/0.3 ML SYRINGE SC SCH (10:31)
--- NOTE | 2025-02-18 10:33 | DVHPNRES ---
Progress Note Date Seen: Feb 18, 2025 Resident Creating Document: MIA ONEILL RESDIENT Medical Necessity Reason Pt with a Central, PICC or Fol: No Subjective Review of Systems This is an 89-year-old gentleman with a past medical history of diabetes, mild cognition dysfunction, post herpetic neuralgia, dyslipidemia came to the hospital due to generalized weakness and fatigue. Per patient, since today patient is feeling weak and yesterday had a mechanical fall, hit his head on the ground, post fall the patient did not lost consciousness, with no nausea and vomiting. He also reports of dysuria, and frequency Today patient seen and examined at the bedside. Patient is feeling better since admission but still complaining of right-sided scrotum discomfort. Objective vital signs Vital Sign Date Time Temp Pulse Resp B/P (MAP) Pulse Ox O2 Delivery O2 Flow Rate FiO2 02/18/25 08:00 97.3 78 16 120/55 (76) 97 97.3 02/18/25 08:00 Room Air* 0 21 medications Current Medications Medications Dose Ordered Sig/Liliane Route Start Time Stop Time Status Last Admin Dose Admin Donepezil HCl 10 mg HS PO 02/18/25 22:00 Lisinopril 5 mg DAILY PO 02/18/25 10:00 Atorvastatin Calcium 20 mg HS PO 02/18/25 22:00 Gabapentin 100 mg TID PO 02/18/25 06:00 02/18/25 05:50 100 MG Diagnostic Test (Pha) 1 strip ACHS 02/18/25 07:00 02/18/25 06:52 1 STRIP Insulin Human Regular ACHS SC 02/18/25 07:00 02/18/25 06:56 2 UNITS Dextrose 50 ml UD PRN IV 02/17/25 22:30 Ondansetron HCl 4 mg Q4HP PRN IV 02/17/25 22:30 Enoxaparin Sodium 30 mg DAILY SC 02/18/25 10:00 Acetaminophen 650 mg Q6HP PRN PO 02/17/25 22:30 Ceftriaxone Sodium 50 ml @ 100 mls/hr DAILY@09 IV 02/19/25 09:00 UNV Examination General Appearance: Alert, Oriented X3, Cooperative, No acute distress HEENT: Atraumatic, PERRLA, EOMI, Mucous membrane moist/pink Respiratory: Clear to auscultation, Normal air movement Cardiovascular: Regular rate, Normal S1, Normal S2, No murmurs, no chest wall tenderness Abdominal: Right side of scrotum is swollen, and tender to palpation, red Extremities: No clubbing, No cyanosis, No edema, Normal pulses, No tenderness/swelling Skin: No rashes, No breakdown, No significant lesion Neuro: Normal gait, Normal speech, Strength at 5/5 X4 ext, Normal tone, Sensation intact, Cranial nerves 3-12 NL, Reflexes 2+ Psych/Mental Status: Mental status NL, Mood NL laboratory and microbiology Laboratory Tests 02/18/25 05:08 Test 02/18/25 05:08 Range/Units Serum Glucose 137 H 74-106 mg/dL Labs and/or images reviewed: Labs reviewed by me, Image(s) reviewed by me Problem List/Assessment/Plan Problem List/Assessment/Plan Complicated UTI Possible orchitis/epididymitis Sepsis due to above History of diabetes type 2 Postherpetic neuralgia Dyslipidemia Mild cognitive dysfunction Plan/recommendation: * Empiric antibiotic Rocephin and doxycycline * IV fluid * Scrotal ultrasound * Urine, blood culture * Pain management * Continue home meds DIET: Regular diet DVT PROPHYLAXIS: Lovenox CODE STATUS: Goal of care discussed for more than 18 minutes, full code DISPOSITION: Med/surge Patient's status and plan discussed with the patient. Case discussed with Dr. Chau. Plan discussed with: Patient, Other (RN) My Orders My Orders Orders - MIA ONEILL [facility] [place] Procedure Category Date Status Time Communication Order ORDERS 02/18/25 Transmitted 07:58 Chest Xray 1 View XY 02/18/25 Resulted 07:59 Covid19 Antigen Rajwinder LAB 02/18/25 Logged Troponin-I Hs LAB 02/18/25 Logged 10:59 Electrocardigram EKG 02/18/25 Logged 07:59 Ceftriaxone 1gm/50ml PHA 02/19/25 Logged (Rocephin) 09:00 Ceftriaxone 1gm/50ml PHA 02/18/25 Logged (Rocephin) 10:30 NS PHA 02/18/25 Verified 10:30 Date of Service: Feb 18, 2025 Billing Provider: ANAYELI HORNE MD Common Visit Codes: [id number] INP/OBS CARE(HIGH) MIA ONEILL RESDIENT Feb 18, 2025 10:33 ANAYELI HOREN MD Feb 18, 2025 16:13
[2025-02-18] MEDS: SODIUM CHLORIDE 0.9% 1,000 ML IV ONE (11:05)
[2025-02-18] MEDS: MAGNESIUM SULFATE 1GM/100ML 100 ML IV SCH (11:46)
[2025-02-18 12:35] VITALS: PULSE 76; RESP 18; O2SAT 98
[2025-02-18] MEDS: DOXYCYCLINE 100MG/100ML 100 ML IV SCH (13:45)
[2025-02-18 16:59] VITALS: BP 159/90; PULSE 66; RESP 16; TEMP 97.9; O2SAT 98
[2025-02-18] MEDS ORDERED: GAB100C PO (17:24)
[2025-02-18] MEDS ORDERED: METF-370 PO (17:24)
[2025-02-18] MEDS ORDERED: SIMV20TA20 PO (17:25)
[2025-02-18] MEDS ORDERED: LISI2.5T47 (17:25)
[2025-02-18] MEDS ORDERED: DONE1TAB88 PO (17:25)
[2025-02-18] MEDS ORDERED: ASPI-628 PO (17:26)
[2025-02-18 17:31] VITALS: BP 142/75; PULSE 70; RESP 18; TEMP 97.9; O2SAT 100
[2025-02-18 20:00] VITALS: PULSE 72; RESP 18; O2SAT 97
[2025-02-18 21:00] VITALS: BP 134/70; PULSE 72; RESP 18; TEMP 98.9; O2SAT 97
[2025-02-18] MEDS: DONEPEZIL HYDROCHLORIDE 5 MG TAB PO SCH (21:52)
[2025-02-18] MEDS: ATORVASTATIN 20 MG TAB PO SCH (21:52)
[2025-02-19 01:00] VITALS: BP 155/79; PULSE 77; RESP 17; TEMP 98.7; O2SAT 97
[2025-02-19 04:52] VITALS: BP 127/62; PULSE 82; RESP 17; TEMP 98.8; O2SAT 95
[2025-02-19 08:49] LABS: Hematocrit 37.1 % (41.0-53.0); Hemoglobin 13.0 g/dL (13.5-17.5); Mean Corpuscular Hemoglobin 33.0 pg (28.0-32.0); Mean Corpuscular Volume 94.2 fL (80.0-100.0); Nucleated Red Blood Cells % 0.1 %
[2025-02-19 08:52] LABS: Albumin 3.6 g/dL (3.2-4.8); Anion Gap 10 (5-15); BUN/Creatinine Ratio 11.1 (10.0-20.0); Blood Urea Nitrogen 12 mg/dL (9-23); Calcium 8.7 mg/dL (8.7-10.4); Carbon Dioxide 24 mmol/L (20-31); Chloride 100 mmol/L (98-107); Potassium 3.6 mmol/L (3.5-5.1); Total Protein 6.2 g/dL (5.7-8.2)
[2025-02-19 08:53] LABS: Bilirubin, Total 1.0 mg/dL (0.2-1.0)
[2025-02-19 09:00] VITALS: BP 148/74; PULSE 82; RESP 20; TEMP 98.4; O2SAT 97
[2025-02-19 09:01] LABS: Alanine Aminotransferase 49 U/L (7-40); Alkaline Phosphatase 117 U/L (46-116); Glucose 117 mg/dL (74-106); Sodium 134 mmol/L (136-145)
--- NOTE | 2025-02-19 09:40 | DVH ---
ULTRASOUND OF SCROTUM AND CONTENTS. INDICATION: Orchitis? COMPARISON: None TECHNIQUE: Multiple real-time grayscale sonographic and color and duplex Doppler images of the scrotum and its contents were obtained. FINDINGS: The right testicle measures 3.8 x 2.7 x 2.7 cm. The left testicle measures 3.2 x 2.2 x 2 cm. The right testicle appears hyperemic. There is a right-sided hydrocele with septations. There is a small left hydrocele. The right epididymal head measures 1.9 cm. The right epididymis is heterogeneous in echotexture with multiple subcentimeter cysts noted. The left epididymal head measures 1.3 cm. The left epididymis is heterogeneous in echotexture with multiple small cystic structures. IMPRESSION: 1. Hyperemic right testicle with a complex right hydrocele. Findings are suspicious for right orchitis. 2. Heterogeneous bilateral epididymides with multiple subcentimeter cysts. GALINDO
[2025-02-19] MEDS ORDERED: AUG875T PO (11:43)
[2025-02-19] MEDS ORDERED: DOXY1CAP58 PO (11:43)
[2025-02-19 13:00] VITALS: BP 127/73; PULSE 79; RESP 17; TEMP 97.9; O2SAT 97
--- NOTE | 2025-02-19 13:35 | DVHDSRES ---
Discharge Summary Date of Admission Resident Creating Document: MIA ONEILL RESDICAHNCE Feb 18, 2025 at 00:15 Date of Discharge: Feb 19, 2025 Labs/Diagnostic Data: Laboratory Results Test 02/19/25 11:31 02/19/25 08:16 02/18/25 10:31 02/18/25 08:10 POC Glucose 173 mg/dl (70-106) White Blood Count 9.1 10^3/uL (4.4-10.8) Red Blood Count 3.94 10^6/uL (4.5-5.90) Hemoglobin 13.0 g/dL (13.5-17.5) Hematocrit 37.1 % (41.0-53.0) Mean Corpuscular Volume 94.2 fL (80.0-100.0) Mean Corpuscular Hemoglobin 33.0 pg (28.0-32.0) Mean Corpuscular Hemoglobin Concent 35.0 g/dL (32.0-36.0) Red Cell Distribution Width 13.5 % (11.8-14.3) Platelet Count 205 10^3/uL (140-450) Mean Platelet Volume 6.5 fL (6.9-10.8) Neutrophils (%) (Auto) 78.3 % (37.0-80.0) Lymphocytes (%) (Auto) 11.8 % (10.0-50.0) Monocytes (%) (Auto) 9.1 % (0.0-12.0) Eosinophils (%) (Auto) 0.7 % (0.0-7.0) Basophils (%) (Auto) 0.1 % (0.0-2.0) Neutrophils # (Auto) 7.2 10 ^3/uL (1.6-8.6) Lymphocytes # (Auto) 1.1 10 ^3/uL (0.4-5.4) Monocytes # (Auto) 0.8 10 ^3/uL (0-1.3) Eosinophils # (Auto) 0.1 10 ^3/uL (0-0.8) Basophils # (Auto) 0 10 ^3/uL (0-0.2) Nucleated Red Blood Cells 0.1 % Sodium Level 134 mmol/L (136-145) Potassium Level 3.6 mmol/L (3.5-5.1) Chloride Level 100 mmol/L (98-107) Carbon Dioxide Level 24 mmol/L (20-31) Anion Gap 10 (5-15) Blood Urea Nitrogen 12 mg/dL (9-23) Creatinine 1.08 mg/dL (0.700-1.30) Glomerular Filtration Rate Calc 66 mL/min (>90) BUN/Creatinine Ratio 11.1 (10.0-20.0) Serum Glucose 117 mg/dL (74-106) Hemoglobin A1c 6.0 % A1C (<5.7) Calcium Level 8.7 mg/dL (8.7-10.4) Total Bilirubin 1.0 mg/dL (0.2-1.0) Aspartate Amino Transferase (AST) 65 U/L (13-40) Alanine Aminotransferase (ALT) 49 U/L (7-40) Alkaline Phosphatase 117 U/L (46-116) Total Protein 6.2 g/dL (5.7-8.2) Albumin 3.6 g/dL (3.2-4.8) Troponin I High Sensitivity 24 ng/L (</=54) Lactic Acid Level 1.3 mmol/L (0.4-2.0) Test 02/18/25 05:42 02/18/25 05:08 Urine Color Yellow (Yellow) Urine Clarity Turbid (Clear) Urine pH 6.0 (5.0-9.0) Urine Specific [place] 1.017 (1.001-1.035) Urine Protein 1+ (Negative) Urine Ketones 1+ (Negative) Urine Blood 2+ /uL (Negative) Urine Nitrite Negative (Negative) Urine Bilirubin Negative (Negative) Urine Urobilinogen Normal mg/dL (Negative) Urine Leukocyte Esterase 2+ /uL (Negative) Urine RBC 1 /hpf (0 - 3) Urine WBC Clumps Present /hpf (None Seen) Urine Microscopic WBC 113 /HPF (0-3) Urine Squamous Epithelial Cells None seen /hpf (<5) Urine Bacteria Many /hpf (None Seen) Urine Glucose Normal mg/dL (Normal) Magnesium Level 1.5 mg/dL (1.6-2.6) B-Type Natriuretic Peptide 160.11 pg/mL (0-100) Other Laboratory Tests 02/19/25 08:16 Brief Hx & Hospital Course: HISTORY OF PRESENT ILLNESS: This is an 89-year-old gentleman with a past medical history of diabetes, mild cognition dysfunction, post herpetic neuralgia, dyslipidemia came to the hospital due to generalized weakness and fatigue. Per patient, since today patient is feeling weak and yesterday had a mechanical fall, hit his head on the ground, post fall the patient did not lost consciousness, with no nausea and vomiting. He also reports of dysuria, and frequency HOSPITAL COURSE: Patient was admitted at the line of UTI. The patient was started on empiric antibiotic of Rocephin. Patient was also complaining of right side scrotal swelling and tenderness. Ultrasound performed, showed possible orchitis/epididymitis. The patient was also given doxycycline. Blood culture showed no growth. Urine culture showed more than 3 colony types. On 01/19, the patient was feeling better since admission. Physical evaluation performed, and recommended home health for PT. Discharge plan discussed with the patient. And the patient discharged home with home health for physical therapy for 2 weeks. DISCHARGE PLAN: Augmentin 875 mg b.i.d. for 7 days Doxycycline 100 mg b.i.d. for 7 days Continue home meds. Follow up with the PCP within 1 week of the discharge. Follow up with the discharge Clinic within 1 week of the discharge. Home health with physical therapy 3 times a week for 2 weeks. FINAL DIAGNOSIS: Complicated UTI Sepsis due to above Possible orchitis/epididymitis Sepsis due to above History of diabetes type 2 Postherpetic neuralgia Dyslipidemia Mild cognitive dysfunction Failure to thrive History of hypertension Condition at Discharge: Fair Final Diagnosis/Problems List Complicated UTI Sepsis due to above Possible orchitis/epididymitis Sepsis due to above History of diabetes type 2 Postherpetic neuralgia Dyslipidemia Mild cognitive dysfunction Failure to thrive History of hypertension Discharge Disposition: Home with Health Services Discharge Instruct/Medications Diet: Regular Activity: No Restrictions, As Tolerated Follow Up/Referral: Follow up with the PCP within 1 week of the discharge. Follow up with the discharge Clinic within 1 week of the discharge. Follow up with Urology on outpatient basis Medications: Augmentin 825 mg b.i.d. for 7 days Doxycycline 100 mg b.i.d. for 7 days Continue home meds Scheduled Amoxicillin & Pot Clavulanate (Augmentin Tablet), 875 MG PO BID Aspirin (Aspirin Adult Low Dose), 1 TAB PO DAILY, (Reported) Donepezil Hydrochloride (Donepezil Hcl), 1 TAB PO DAILY, (Reported) Doxycycline (Monohydrate) (Doxycycline), 100 MG PO BID Lisinopril (Lisinopril), 1 TAB DAILY, (Reported) Miscellaneous Medications Gabapentin (Gabapentin), 1-3 CAP PO, (Reported) Metformin Hydrochloride (Metformin Hcl), 1 TAB PO, (Reported) Simvastatin (Simvastatin), 1 TAB PO, (Reported) Discharge Statement: "Patient was advised to return to the ER or call 911 if any headaches, dizziness, shortness of breath, chest pain, abdominal pain, bleeding, fevers, or worsening of medical condition. Patient was counseled about treatment plan, medications, possible side effects, patientverbalized understanding. All questions were answered to the best of my ability. This discharge took greater then 30 minutes in planning, reviewing documentation, counseling the patient, and discussing with other team members." ASSESSMENT ASSESSMENT Assessment UTI Orchitis Date of Service: Feb 19, 2025 Billing Provider: ANAYELI HORNE MD Common Visit Codes: 77844-IGQ/OBS DISCH DAY >30min MIA ONEILL RESDIENT Feb 19, 2025 13:35 ANAYELI HORNE MD Feb 21, 2025 16:39
[2025-02-19 16:53] VITALS: BP 145/74; PULSE 80; RESP 20; TEMP 98.7; O2SAT 94
[2025-02-20 18:07] LABS: Chlamydia Trachomatis, NAA Negative (Negative); Neisseria gonorrhoeae, NAA Negative (Negative)
== END 2025-02-19 16:32 | disposition home or self-care (01) | DRG 871 ==
LOC: EDBD 14:29 → ER 14:29 → OVERFLOW 02-18 00:15 → CENTRAL 02-18 16:51
PROVIDERS: ADMIT Student in an Organized Health Care Education/Training Program; ATTEND Student in an Organized Health Care Education/Training Program
DX: A41.9 Sepsis, unspecified organism (principal); N17.0 Acute kidney failure with tubular necrosis; R62.7 Adult failure to thrive; N39.0 Urinary tract infection, site not specified; N45.2 Orchitis; N45.1 Epididymitis; E11.9 Type 2 diabetes mellitus without complications; I10 Essential (primary) hypertension; F03.90 Unspecified dementia, unspecified severity, without behavioral disturbance, psychotic disturbance, mood disturbance, and anxiety; B02.29 Other postherpetic nervous system involvement; Z68.25 Body mass index [BMI] 25.0-25.9, adult; E78.5 Hyperlipidemia, unspecified
CPT/HCPCS: 36415; 71045; 73502; 76870; 80048; 80053; 81001; 82962; 83036; 83605; 83735; 83880; 84484; 85025; 87040; 87086; 93005; 96365; 96372; 97163; G0378; J1815